=== PATIENT | male | born 1960 | race Caucasian/White ===

== ENCOUNTER 2017-03-22 10:38 | Outpatient (CLI) | payer OTHER ==
[2013-09-23 08:51] VITALS: BP 148/100
[2017-03-22 11:19] LABS: eGFR (African) > 60; eGFR (Non-African) > 60
== END 2017-03-22 10:40 ==
LOC: LAB 10:38
PROVIDERS: ATTEND Family Medicine
DX: E11.41 Type 2 diabetes mellitus with diabetic mononeuropathy (principal); E03.9 Hypothyroidism, unspecified
CPT/HCPCS: 36415; 80053; 80061; 82043; 83036; 84443

== ENCOUNTER 2017-05-07 13:53 | Outpatient (CLI) | payer OTHER ==
[2013-09-23 08:51] VITALS: BP 148/100
== END 2017-05-07 13:54 ==
LOC: LAB 13:53
PROVIDERS: ATTEND Family Medicine
DX: E03.9 Hypothyroidism, unspecified (principal)
CPT/HCPCS: 36415; 84443

== ENCOUNTER 2017-05-29 11:21 | Outpatient (CLI) | payer OTHER ==
[2013-09-23 08:51] VITALS: BP 148/100
[2017-05-29 21:11] LABS: T3-UPTAKE 35.5 % (25.4-41.2)
== END 2017-05-29 11:22 ==
LOC: LAB 11:21
PROVIDERS: ATTEND Family Medicine
DX: R53.82 Chronic fatigue, unspecified (principal)
CPT/HCPCS: 36415; 84436; 84479

== ENCOUNTER 2017-09-06 10:47 | Outpatient (CLI) | payer OTHER ==
[2013-09-23 08:51] VITALS: BP 148/100
[2017-09-06 11:31] LABS: eGFR (African) > 60; eGFR (Non-African) > 60
== END 2017-09-06 10:50 ==
LOC: LAB 10:47
PROVIDERS: ATTEND Family Medicine
DX: E11.41 Type 2 diabetes mellitus with diabetic mononeuropathy (principal); I10 Essential (primary) hypertension
CPT/HCPCS: 36415; 80053; 80061; 83036

== ENCOUNTER 2019-05-12 06:38 | Day surgery (SDC) | payer OTHER ==
[2013-09-23 08:51] VITALS: BP 148/100
[2019-05-12] MEDS ORDERED: LIDOCAINE HCL 2% PF 100MG/5ML VIAL IJ ONE (08:48)
[2019-05-12] MEDS ORDERED: LACTATED RINGERS 1,000 ML IV.SOLN IV ONE (08:48)
[2019-05-12] MEDS ORDERED: PROPOFOL 500 MG/50 ML VIAL IV ONE (08:48)
--- NOTE | 2019-05-23 12:28 | GI Report ---
DATE OF PROCEDURE: 05/12/2019 REFERRING PHYSICIAN: Dr. Myers. PROCEDURE PERFORMED: Colonoscopy. INDICATION FOR PROCEDURE: The patient is a 58-year-old man. He has had multiple adenomatous polyps we looked at a little over 5 years ago. He has had increasing constipation, and sometimes abdominal discomfort. He denies bleeding. On the last colonoscopy we suggested increasing fiber such as Metamucil, MiraLAX, which he has not done. PROCEDURE MEDICATION: Propofol, as per Anesthesia. DESCRIPTION OF PROCEDURE: The Olympus video colonoscope was advanced through the rectum. The prep was actually poor. There was some residual dark stool throughout the whole colon. He does have moderate to severe diverticular disease in the sigmoid colon, a very atonic redundant colon. It took maneuvering to finally reach the cecum. We lavaged a number of areas trying to improve visibility but could not completely clear the lumen because it clogged the scope. The base of the cecum appears normal, the ileocecal valve normal. In the ascending colon, no obvious intraluminal lesions noted. In the transverse colon, again no obvious intraluminal lesions noted, but a poor prep. In the descending colon and sigmoid, scattered diverticula. No obvious intraluminal lesions noted. Rectum retroflexion looks normal. The patient tolerated the procedure well. FINDINGS: 1. Moderate to severe diverticular disease of the sigmoid, descending colon. 2. An atonic, redundant colon. 3. Poor prep. Small flat polyps could be missed with a prep this poor. RECOMMENDATIONS: 1. Because of the poor prep and he had 4 adenomatous polyps the last time, would recommend relook at his colon within 5 years. The next time he needs to be on a 2-3 day prep so he is clear. 2. He can take MiraLAX daily with his constipation, increasing fiber in the diet such as fruits, vegetables or adding Benefiber, Metamucil. 3. Follow up with Dr. Myers. ISABEL PAIZ M.D., F.A.C.P. LEODAN/[place]ust[place] R: 05/21/19 Job#: [id number] Cc: Dr. Louis ROSAS
== END 2019-05-12 09:45 | disposition home or self-care (01) ==
LOC: OPSURG 06:38
PROVIDERS: ATTEND Internal Medicine Gastroenterology
DX: K59.00 Constipation, unspecified (principal); K57.30 Diverticulosis of large intestine without perforation or abscess without bleeding; K63.89 Other specified diseases of intestine; Z86.010 Personal history of colon polyps
CPT/HCPCS: 45378; J2001; J2704; J7120